=== PATIENT | male | born 1950 | race Caucasian/White ===

== ENCOUNTER 2017-12-25 10:39 | Emergency (ER) | payer OTHER ==
[~2017-12-25] VITALS: Ht 175.3 cm; Wt 105.0 kg
[2017-12-25 10:44] VITALS: BP 174/83; PULSE 81; RESP 18; TEMP 97.5; O2SAT 97
[2017-12-25] MEDS ORDERED: ZOLO50TA PO (13:39)
[2017-12-25] MEDS ORDERED: IBUP-232 PO (13:40)
[2017-12-25] MEDS ORDERED: ORPHENADRINE INJ 60 MG/2 ML AMP IM ONE (13:45)
[2017-12-25] MEDS ORDERED: KETOROLAC TROMETHAMINE 60 MG/2 ML (IM) VIAL IM ONE (13:45)
[2017-12-25] MEDS ORDERED: DICL75TA PO (13:56)
[2017-12-25] MEDS ORDERED: PRED20 PO (13:56)
[2017-12-25] MEDS ORDERED: ROBA500T PO (13:56)
--- NOTE | 2017-12-25 14:08 | PD ---
HPI Chief Complaint: Back/ Neck Pain or Injury Time Seen by Provider: 13:29 Travel History International Travel<30 days: No Contact w/Intl Traveler<30days: No Traveled to known affect area: No History of Present Illness HPI 67-year-old male that presents to the ED for evaluation of left hip pain radiating down the leg. Per patient has had this for about 9 days but worse the past couple days. Per patient he has an appointment with Dr. Delaney in 2 weeks but he states that the pain has become more severe so he came here to get evaluated. He denies any back pain or any numbness or tingling. Per patient the pain radiates down from the hip all the way down to the foot. Mainly following the lateral aspect of the leg. States that is shooting and ankle 9 out of 10. Able to move it fully. Denies any overuse. Denies any falls or injuries. No histories of this in the past. No urinary or bowel movement issues. No groin numbness or tingling. Denies any weakness. Able to and little without discomfort. Has not taken anything for this. Hasn't seen anybody for this. PFSH Past Medical History Depression: Yes Diminished Hearing: No Diverticulitis: Yes Gastrointestinal Disorders: Yes Psychiatric: Yes Tetanus Vaccination: < 5 Years Influenza Vaccination: Yes Social History Alcohol Use: No Tobacco Use: No Substance Use: No Allergies-Medications (Allergen,Severity, Reaction): Coded Allergies: No Known Allergies (Unverified , 12/25/17) Reported Meds & Prescriptions Reported Meds & Active Scripts Active Prednisone 20 Mg Tab 20 Mg PO BID 5 Days Robaxin (Methocarbamol) 500 Mg Tab 500 Mg PO QID Diclofenac Sodium DR (Diclofenac Sodium) 75 Mg Tabdr 75 Mg PO BID PRN Reported Ibuprofen 600 Mg Tab 600 Mg PO Q6H PRN Zoloft (Sertraline HCl) 50 Mg Tab 50 Mg PO DAILY Review of Systems Except as stated in HPI: all other systems reviewed are Neg Physical Exam Narrative GENERAL: SKIN: Warm and dry. HEAD: Atraumatic. Normocephalic. EYES: Pupils equal and round. No scleral icterus. No injection or drainage. ENT: No nasal bleeding or discharge. Mucous membranes pink and moist. Tongue is midline. No uvula deviation. NECK: Trachea midline. No JVD. CARDIOVASCULAR: Regular rate and rhythm. RESPIRATORY: No accessory muscle use. Clear to auscultation. Breath sounds equal bilaterally. GASTROINTESTINAL: Abdomen soft, non-tender, nondistended. Hepatic and splenic margins not palpable. MUSCULOSKELETAL: Extremities without clubbing, cyanosis, or edema. No obvious deformities. Full range of motion of the upper and lower extremities bilaterally. 2+ pulses bilaterally in the bilateral lower legs.. No lumbar, thoracic, cervical spine tenderness to palpation. Straight leg test negative bilaterally. Sensation and strength intact bilaterally. Pain is not really reproducible with touch but only with movement. NEUROLOGICAL: Awake and alert. No obvious cranial nerve deficits. Motor grossly within normal limits. Five out of 5 muscle strength in the arms and legs. Normal speech. PSYCHIATRIC: Appropriate mood and affect; insight and judgment normal. Data Data Last Documented VS Vital Signs Date Time Temp Pulse Resp B/P (MAP) Pulse Ox O2 Delivery O2 Flow Rate FiO2 12/25/17 10:44 97.5 81 18 174/83 (113) 97 Orders Orders Hip, Uni(Ap&Lat) W Ap Pelvis (12/25/17 13:41) Ketorolac Inj (Toradol Inj) (12/25/17 13:45) Orphenadrine Inj (Norflex Inj) (12/25/17 13:45) MDM Medical Decision Making Medical Screen Exam Complete: Yes Emergency Medical Condition: Yes Medical Record Reviewed: Yes Interpretation(s) X-ray the left hip show no sign of acute injury or deformity. Differential Diagnosis Fracture versus arthritis versus sciatica versus lumbar radiculopathy Narrative Course 67-year-old male that presents to the ED presents to the ED for evaluation of left leg pain. Patient was properly examined and was found to have signs and symptoms very consistent what appears to be sciatica. X-ray of the hip was done as patient does have tenderness to palpation on the left hip with movement. X-ray was negative for acute disease. Patient was reassured. Appears to be sciatica. Patient was given IM doses of Toradol and Norflex. Patient given prescriptions for diclofenac sodium, prednisone, Robaxin. Told to follow closely with PCP and Dr. Delaney. See ED worsening symptoms. Ice or warm compresses as needed. Diagnosis Primary Impression: Sciatica of left side Patient Instructions: General Instructions Additional Instructions: Take medications as prescribed. Follow-up with PCP. See ED for any worsening symptoms. Do not drink or drive while taking pain medication. Apply ice or heat as needed for pain Med/Other Pt SpecificInfo: Prescription(s) given Scripts Prednisone (Prednisone) 20 Mg Tab 20 MG PO BID for 5 Days, #10 TAB 0 Refills Prov: Kennedy Osorio MD 12/25/17 Methocarbamol (Robaxin) 500 Mg Tab 500 MG PO QID for Muscle Spasm, #15 TAB 0 Refills Prov: Kennedy Osorio MD 12/25/[address] (Diclofenac Sodium DR) 75 Mg Tabdr 75 MG PO BID Y for PAIN SCALE 1 TO 10, #20 TAB 0 Refills Prov: Kennedy Osorio MD 12/25/17 Disposition: 01 DISCHARGE HOME Condition: Kasi Coleman Dec 25, 2017 14:08
--- NOTE | 2017-12-25 14:13 | RADRPT ---
EXAM DATE/TIME: 12/25/2017 13:56 [facility] COMPARISON: No previous studies available for comparison. INDICATIONS : Left hip pain. No prio injuries. MEDICAL HISTORY : None. SURGICAL HISTORY : ORIF right hip. ENCOUNTER: Initial ACUITY: 1 week PAIN SCORE: 5/10 LOCATION: Left hip. FINDINGS: The patient is post arthroplasty on the right. Orthopedic hardware is well-positioned. There are mild osteophytic changes within the left hip. The bony mineralization is normal. No acute f racture is seen. CONCLUSION: 1. The right hip orthopedic hardware is in excellent position. 2. Mild degenerative changes in the left hip. Remigio King MD on December 25, 2017 at 14:09 Board Certified Radiologist. This report was verified electronically.
== END 2017-12-25 14:55 | disposition home or self-care (01) ==
LOC: NEPA 10:39
DX: M54.32 Sciatica, left side (principal); M16.12 Unilateral primary osteoarthritis, left hip; F32.9 Major depressive disorder, single episode, unspecified; Z87.19 Personal history of other diseases of the digestive system; Z79.899 Other long term (current) drug therapy
CPT/HCPCS: 73502; 96372; 99283; J1885; J2360